=== PATIENT | male | born 1935 | race Hispanic/Latino ===

== ENCOUNTER 2018-09-11 11:54 | Observation (INO) | payer MEDICARE ==
[2018-09-09 14:45] VITALS: BP 113/68
[2018-09-09 14:46] LABS: APPEARANCE,URINE Clear (CLEAR); BILIRUBIN,URINE Negative (NEGATIVE); COLOR,URINE Yellow (YELLOW); GLUCOSE, URINE (UA) Negative (NEGATIVE); KETONES,URINE Negative (NEGATIVE); LEUKOCYTE ESTERASE ,URINE Negative (NEGATIVE); NITRATE,URINE Negative (NEGATIVE); OCCULT BLOOD,URINE Negative (NEGATIVE); PROTEIN,URINE Negative (NEGATIVE)
[2018-09-09 14:46] LABS: BASOPHILS % (AUTO) 0.7 % (0.0-5.0); EOSINOPHILS % (AUTO) 1.3 % (0.0-8.0); HEMATOCRIT 39.4 % (42-54); LYMPHOCYTES % (AUTO) 11.4 % (21.0-51.0); MEAN CORPUSCULAR HEMOGLOBIN 28.4 pg (27.0-33.0); MEAN CORPUSCULAR HGB CONC 33.3 g/dL (32.0-36.0); MONOCYTES % (AUTO) 6.8 % (3.0-13.0); NEUTROPHILS % (AUTO) 79.8 % (40.0-77.0); NUCLEATED RED BLOOD CELLS 0.1 % (0.0-0.19); PLATELET COUNT (AUTO) 181 K/uL (130-400); RED BLOOD CELL COUNT(AUTO) 4.63 MIL/uL (4.50-6.20); RED CELL DISTRIBUTION WIDTH 15.6 % (11.0-15.5); WHITE BLOOD COUNT (AUTO) 6.5 K/uL (4.8-10.8)
[2018-09-09 15:00] LABS: CREATININE 1.5 mg/dL (0.5-1.5); POTASSIUM 4.3 mmol/L (3.5-5.1)
[2018-09-09 15:05] LABS: INR 1.06 (0.85-1.15); PARTIAL THROMBOPLASTIN TIME 32.4 SEC (26.3-35.5); PROTHROMBIN TIME 11.1 SEC (9.6-11.6)
--- NOTE | 2018-09-10 13:11 | NUR ---
BMP FAXED AND REPORTED ABNORMAL BUN/CREA TO DR. FADY ALONZO. SHE WILL INFORM HIM.
[2018-09-11] VITALS (14 sets, daily range): BP systolic 100–121; BP diastolic 47–77
[~2018-09-11] VITALS: Ht 175.3 cm; Wt 86.6 kg
[~2018-09-11 11:54] MED LIST: AMIO100T4 PO; FE F1CAP8 PO; FURO40TA5 PO; LISI-617 PO; POTA20TA12 PO; SODIUM CHLORIDE 0.9% 500ML 500 ML IV SCH
[2018-09-11] MEDS ORDERED: SODIUM CHLORIDE 0.9% 1000ML 1,000 ML IV ONE (12:23)
[2018-09-11] MEDS ORDERED: BIVALIRUDIN 250 MG/VIAL IV ONE (15:03)
[2018-09-11] MEDS ORDERED: IOHEXOL-350 50ML VIAL IV ONE (15:04)
[2018-09-11] MEDS ORDERED: LIDOCAINE HCL 2% 20ML ONE ×2 (15:04→15:59)
[2018-09-11] MEDS ORDERED: NITROGLYCERIN 5 MG/ML 10 ML VIAL IV ONE (15:04)
[2018-09-11] MEDS ORDERED: IOHEXOL 350 MG/ML 100ML INFUS..BTL IV ONE (15:04)
--- NOTE | 2018-09-11 16:00 | NUR ---
PATIENT TEACHING ON BEING ON BEDREST AND TO CALL FOE ASSISTANCE IF NEEDED. PT DENIES ANY CHEST PAIN OR SOB. LIFE VEST IN PLACE. PATIENT VERBALIZED UNDERSTANDING AND AGREED TO CALL IF NEEDED.
--- NOTE | 2018-09-11 17:45 | NUR ---
PATIENT ASSISTED TO EAT IN BED BY MADONNA. PATIENT STATES FEELING WELL.
--- NOTE | 2018-09-11 18:40 | NUR ---
REPORT CALLED TO DEXTER JAFFE RN, BOTH PATIENT AND FAMILY INFORMED OF ROOM NUMBER. PATIENT TRANSFERRED IN NO DISTRESS AAOX3.
--- NOTE | 2018-09-11 18:45 | NUR ---
TRANSFER PT RECEIVED FROM [facility] VIA BED. FAMILY @ BEDSIDE. SPA SPEAKING ONLY. S/P LHC ATTEMPT BY DR WHALEN. RT GROIN DSTAT, DRY & INTACT. NO BLEEDING, NO HEMATOMA. PUNCTURE SITE SOFT, NON-TENDER. LT GROIN GAUZE PAD & OPSITE, DRY & INTACT. NO BLEEDING, NO HEMATOMA NOTED. PUNCTURE SITE SOFT,NON-TENDER. (+) BILATERAL PEDAL PULSES BY DOPPLER. BLE PIK & WARM TO TOUCH. BLE PITTING EDEMA. PT INFORMED TO MAINTAIN BEDREST X 6 HRS. ORIENTED TO RM. A/O X 3. NO SOB. NO DISTRESS NOTED. DENIES CHEST PAIN OR DISCOMFORT. DENIES INCISIONAL PAIN. TELE: SR 60s. DENIES N/V AND /OR DIARRHEA. URINAL @ BEDSIDE. INSTRUCTED TO CALL FOR ASSISTANCE. CALL MERYL W/IN REACH.
--- NOTE | 2018-09-11 19:45 | NUR ---
ASSESSMENT PATIENT IS AAOX3. PATIENT DENIES CHEST PAIN AND SHORTNESS OF BREATH. ON ROOM AIR. RESPIRATIONS UNLABORED. 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 BILATERAL GROIN SOFT WITHOUT BLEEDING OR HEMATOMA. DORSALIS PEDIS PULSES BY DOPPLER. BEDREST OVER AT 2230. REMINDED PATIENT NOT TO LIFT BILATERAL LEGS. PATIENT VERBALIZED UNDERSTANDING. SEE DOCUMENTATION FOR FULL ASSESSMENT. CALL LIGHT WITHIN REACH. INSTRUCTED PATIENT TO CALL IF ASSISTANCE IS NEEDED. Addendum: 09/12/18 at 0231 by FLORINDA QUEVEDO RN RN WILL CONTINUE CHECKING BILATERAL GROIN AND PULSES PER M.D. ORDER.
--- NOTE | 2018-09-11 22:30 | NUR ---
BEDREST OVER. BILATERAL GROIN SOFT WITHOUT BLEEDING OR HEMATOMA. DORSALIS PEDIS PULSES BY DOPPLER. WILL CONTINUE TO MONITOR.
[2018-09-12 03:37] VITALS: BP 111/72
[2018-09-12 03:55] LABS: HEMATOCRIT 36.5 % (42-54); MEAN CORPUSCULAR HEMOGLOBIN 28.5 pg (27.0-33.0); MEAN CORPUSCULAR HGB CONC 33.5 g/dL (32.0-36.0); PLATELET COUNT (AUTO) 190 K/uL (130-400); RED CELL DISTRIBUTION WIDTH 15.2 % (11.0-15.5); WHITE BLOOD COUNT (AUTO) 8.5 K/uL (4.8-10.8)
--- NOTE | 2018-09-12 04:45 | NUR ---
BILATERAL GROIN SOFT WITHOUT BLEEDING OR HEMATOMA.
--- NOTE | 2018-09-12 07:30 | NUR ---
AM ASSESSMENT PT LAYING IN BED, HOB ELEVATED 30 DEGREES, RESTING. A/O X 3. NO SOB. NO DISTRESS NOTED. DENIES CHEST PAIN OR DISCOMFORT. DENIES PALPITATIONS. DENIES INCISIONAL PAIN. TELE: SB 50s-SR 60s. DENIES N/V AND/OR DIARRHEA. BILATERAL GROIN DSG DRY & INTACT. NO BLEEDING, NO HEMATOMA ON EITHER GROIN. PUNCTURES SITES SOFT, NON-TENDER. BLE PINK & WARM TO TOUCH. (+) BILATERAL PEDAL PULSES BY DOPPLER. PT ASSISTED UP TO CHAIR. TOLERATED WELL. DENIES LIGHT HEADED AND/OR DIZZINESS. INSTRUCTED TO CALL FOR ASSISTANCE. CALL MERYL W/IN REACH.
[2018-09-12 07:33] VITALS: BP 118/63
[2018-09-12] MEDS ORDERED: POTASSIUM CHLORIDE 20 MEQ ERTAB PO SCH (09:00)
[2018-09-12] MEDS ORDERED: AMIODARONE HCL 200 MG TABLET PO SCH (09:00)
[2018-09-12] MEDS ORDERED: FUROSEMIDE 40 MG TABLET PO SCH (09:00)
[2018-09-12] MEDS ORDERED: LISINOPRIL 5 MG TABLET PO SCH (09:00)
[2018-09-12 11:00] VITALS: BP 119/59
--- NOTE | 2018-09-12 11:30 | NUR ---
DISCHARGE VERBAL & WRITTEN DISCHARGE INSTRUCTION REVIEWED & GIVEN TO PT IN [place]. QUESTIONS ENCOURAGED & CLARIFIED. PROPER CARE & MGT OF FEMORAL SITES REVIEWED. PT TO CONTINUE HOME MEDICATIONS. TELE JAYLEN REMOVED. IV DISCONTINUED. CALL PLACED TO PT'S GRAND DAUGHTER, ARGEILA, TO HAVE PT PICKED UP FROM HOSPITAL. PT TO GATHER PERSONAL BELONGINGS. WILL NOTIFY STAFF WHEN FAMILY ARRIVES.
--- NOTE | 2018-09-12 12:55 | NUR ---
DISCHARGE FAMILY HERE TO TAKE PT HOME. PT TAKEN TO PRIVATE VEHICLE VIA WC BY Pablo CARTER PCP, ACCOMPANIED BY FAMILY. NO DISTRESS NOTED.
== END 2018-09-12 13:00 | disposition home or self-care (01) ==
LOC: DAH 11:54 → DAHIP 11:55 → 2DH 18:59
PROVIDERS: ADMIT Internal Medicine Cardiovascular Disease; ATTEND Internal Medicine Cardiovascular Disease
DX: I11.0 Hypertensive heart disease with heart failure (principal); I50.22 Chronic systolic (congestive) heart failure; I25.10 Atherosclerotic heart disease of native coronary artery without angina pectoris; I25.2 Old myocardial infarction; I25.5 Ischemic cardiomyopathy; Z79.899 Other long term (current) drug therapy; Z82.49 Family history of ischemic heart disease and other diseases of the circulatory system
CPT/HCPCS: 36140; 36415 ×2; 71045; 75710; 80048; 81003; 85025; 85027; 85610; 85730; 93005; A4606; C1894 ×2; G0378 ×25; J1644; J3490 ×3; J7030; Q9965; Q9967 ×2; 36200; J0583

== ENCOUNTER 2018-09-23 15:53 | Inpatient (IN) | payer MEDICARE | END 2018-09-25 14:45 | disposition home or self-care (01) | LOC: 2AH 15:53 → 2BH 20:08 | PROC: 5A1223Z Performance of Cardiac Pacing, Continuous (ICD-10-PCS; principal; ~2018-09-23) | DX: I44.2 Atrioventricular block, complete (principal); I13.0 Hypertensive heart and chronic kidney disease with heart failure and stage 1 through stage 4 chronic kidney disease, or unspecified chronic kidney disease; N17.9 Acute kidney failure, unspecified; I25.5 Ischemic cardiomyopathy; I25.10 Atherosclerotic heart disease of native coronary artery without angina pectoris; I50.9 Heart failure, unspecified; N28.9 Disorder of kidney and ureter, unspecified ==